=== PATIENT | female | born 1970 | race Caucasian/White ===

== ENCOUNTER 2016-10-04 10:28 | Emergency (ER) | payer BC, OTHER ==
[2016-10-04 10:34] VITALS: BMI 32.0
[2016-10-04] MEDS ORDERED: ASPIRIN 81 MG CHEWABLE TABLETS PO ONE (11:09)
[2016-10-04] MEDS ORDERED: KETOROLAC TROMETHAMINE 30 MG/1 ML VIAL IVPUSH ONE (11:09)
--- NOTE | 2016-10-04 11:26 | PDOC ---
History of Present Illness - General Chief Complaint: Pain, Acute Stated Complaint: Left arm pain, hearburn, back pain, sent by urgent Time Seen by Provider: 10/04/16 10:53 History Source: Patient Exam Limitations: No Limitations - History of Present Illness Initial Comments: 10/04/16 11:06 46-year-old female presents to the ED with complaints of initial epigastric pain with nausea and chills Monday night after going to a that resolved after taking Tums and Motrin. Patient states yesterday started to have left arm pain which she describes as a tingling now radiating to her left neck and then to her left chest wall this morning. Patient states went to an urgent care clinic who did a BGM since patient is recent diagnosis of prediabetic but was negative with no acute findings. Patient was sent to the ER for cardiac and pulmonary workup. Patient denies medical history recent travel, recent illness, cough, shortness of breath, palpitations, history of cervical disorders, or familial cardiac disease. Timing/Duration: 24 hours Severity: moderate Associated Symptoms: reports: chest pain Past History - Past Medical History Allergies/Adverse Reactions: Allergies Allergy/AdvReac Type Severity Reaction Status Date / Time No Known Allergies Allergy Unverified 10/04/16 10:34 Home Medications: Ambulatory Orders NK [No Known Home Medication] 10/04/16 Other medical history: denies - Reproductive History LMP Normal: Yes Is Patient Now?: No - Psycho/Social/Smoking Cessation Hx Suicidal Ideation: No Smoking History: Never smoked Information on smoking cessation initiated: No Hx Alcohol Use: No Drug/Substance Use Hx: No Substance Use Type: None Patient Lives Alone: No Review of Systems - Review of Systems Able to Perform ROS?: Yes Constitutional: Yes: Chills (3 days ago) HEENTM: No: Symptoms Reported Respiratory: No: Symptoms reported Cardiac (ROS): Yes: Chest Pain ABD/GI: No: Symptoms Reported : No: Symptoms Reported Musculoskeletal: Yes: Neck Pain Integumentary: No: Symptoms Reported Neurological: Yes: Tingling (left arm). No: Numbness, Weakness, Dizziness Psychiatric: No: Anxiety Endocrine: No: Symptoms Reported Hematologic/Lymphatic: No: Symptoms Reported *Physical Exam - Vital Signs Last Vital Signs Temp Pulse Resp BP Pulse Ox 98.1 F 68 18 111/70 99 10/04/16 10:32 10/04/16 10:32 10/04/16 10:32 10/04/16 10:32 10/04/16 10:32 - Physical Exam General Appearance: Yes: Nourished, Appropriately Dressed. No: Apparent Distress HEENT: positive: EOMI, DANIS. negative: Pale Conjunctivae Neck: positive: Supple. negative: Tender, Decreased range of motion Respiratory/Chest: positive: Chest Tender (left anterior chest (generalized)), Lungs Clear, Normal Breath Sounds. negative: Respiratory Distress, Accessory Muscle Use Cardiovascular: positive: Regular Rhythm, Regular Rate. negative: Murmur Gastrointestinal/Abdominal: positive: Soft. negative: Tenderness Musculoskeletal: negative: CVA Tenderness, Vertebral Tenderness Integumentary: positive: Normal Color, Warm, Moist Neurologic: positive: Normal Mood/Affect, Motor Strength 5/5 (left hand grasp, left shoulder shrug). negative: Numbness, Sensory Deficit Heart Score/ECG Review - History History: Slightly suspicious (rate 71. nsr) - Electrocardiogram EKG: Normal - Age Age: 45-65 - Risk Factors Risk Factors Heart Score: Yes Hx Diabetes (pre) Based on the list above the patient has:: 1-2 risk factors - Troponin Troponin: </= normal limit - Score Heart Score - Total: 2 - ECG Intrepretation Rhythm: Regular Rhythm ED Treatment Course - LABORATORY CBC & Chemistry Diagram: 10/04/16 12:50 10/04/16 12:12 - RADIOLOGY Radiology Studies Ordered: Category Date Time Status CHEST X-RAY PORTABLE* [RAD] Stat Radiology 10/04/16 11:09 Ordered Medical Decision Making - Medical Decision Making 10/04/16 11:51 Patient with left arm pain radiating to her neck and then now today to her left chest wall. Patient examined reproducible left-sided chest discomfort which she describes an aching sensation. Patient states a few days prior had nausea with retching without vomiting along with epigastric pain. Patient ordered for cardiac workup including a d-dimer. Patient also ordered for aspirin and Toradol 10/04/16 14:57 Laboratory Tests 10/04/16 10/04/16 10/04/16 12:12 12:13 12:13 WBC Hgb Hct Plt Count Neutrophils % INR 1.00 D-Dimer < 200 Sodium 140 Potassium 4.3 Chloride 101 Carbon Dioxide 28 Anion Gap 11 BUN 15 Creatinine 0.8 Random Glucose 93 Calcium 9.9 Total Bilirubin 0.4 ALT 27 Alkaline Phosphatase 72 Creatine Kinase 117 Troponin I < 0.02 Total Protein 7.4 Albumin 4.1 Serum , Qual Negative 10/04/16 12:50 WBC 5.9 Hgb 14.2 Hct 42.7 Plt Count 276 Neutrophils % 57.7 INR D-Dimer Sodium Potassium Chloride Carbon Dioxide Anion Gap BUN Creatinine Random Glucose Calcium Total Bilirubin ALT Alkaline Phosphatase Creatine Kinase Troponin I Total Protein Albumin Serum , Qual Chest x-ray negative. Patient will be discharged home to follow-up with her PCP *DC/Admit/Observation/Transfer Diagnosis at time of Disposition: Musculoskeletal pain of left upper extremity - Discharge Dispostion Disposition: HOME Condition at time of disposition: Good - Referrals Referrals: Rao Whittaker MD [Primary Care Provider] - - Patient Instructions Printed Discharge Instructions: DI for Musculoskeletal Pain Additional Instructions: Your d-dimer and cardiac workup were negative including a chest x-ray and other labs. I recommend you take Motrin 600 mg as needed for discomfort and follow-up with your PCP.
[2016-10-04] MEDS ORDERED: KETOROLAC TROMETHAMINE 30 MG/1 ML VIAL ONE (11:40)
[2016-10-04] MEDS ORDERED: ASPIRIN 81 MG CHEWABLE TABLETS ONE (11:40)
[2016-10-04 12:19] LABS: ALBUMIN 4.2 g/dl (3.4-5.0); ANION GAP 6 (8-16); BILIRUBIN,TOTAL 0.5 mg/dL (0.2-1.0); CALCIUM 10.1 mg/dL (8.5-10.1); CO2 27 mmol/L (21-32); COCKROFT - GAULT 123.1565; CREATININE 0.7 mg/dL (0.55-1.02); GLUCOSE,RANDOM 84 mg/dL (74-106); SGPT/ALT 27 U/L (12-78); TOT PROT 7.6 g/dl (6.4-8.2)
[2016-10-04 12:20] LABS: ALK PHOS 72 U/L (45-117)
[2016-10-04 12:21] LABS: SGOT/AST 37 U/L (15-37)
[2016-10-04 13:08] LABS: BASOPHIL 0.5 % (0-2.0); EOSINOPHIL 2.5 % (0-4.5); MCH 29.1 pg (25.7-33.7); MCHC 33.3 g/dl (32.0-36.0); MEAN CELL VOLUME 87.4 fl (80-96); MEAN PLT VOLUME 8.6 fl (7.5-11.1); NEUTROPHILS 57.7 % (42.8-82.8); PLATELET COUNT 276 K/MM3 (134-434); RDW 13.8 % (11.6-15.6); WHITE BLOOD COUNT 5.9 K/mm3 (4.0-10.0)
[2016-10-04 13:29] LABS: D-DIMER < 200 ng/ml (<200-235)
[2016-10-04 13:32] LABS: ALBUMIN 4.1 g/dl (3.4-5.0); ANION GAP 11 (8-16); BILIRUBIN,TOTAL 0.4 mg/dL (0.2-1.0); CALCIUM 9.9 mg/dL (8.5-10.1); CO2 28 mmol/L (21-32); CREATININE 0.8 mg/dL (0.55-1.02); GLUCOSE,RANDOM 93 mg/dL (74-106); SGOT/AST 19 U/L (15-37); SGPT/ALT 27 U/L (12-78); TOT PROT 7.4 g/dl (6.4-8.2)
[2016-10-04 13:35] LABS: ALK PHOS 72 U/L (45-117); TROPONIN I < 0.02 ng/ml (0.00-0.05)
[2016-10-04 15:25] VITALS: BP 102/73; PULSE 73; TEMP 98.4
--- NOTE | 2016-10-05 12:33 | EKG ---
Test Reason : Blood Pressure : / mmHG Vent. Rate : 071 BPM Atrial Rate : 071 BPM P-R Int : 170 ms QRS Dur : 080 ms QT Int : 402 ms P-R-T Axes : 063 054 063 degrees QTc Int : 436 ms NORMAL SINUS RHYTHM NORMAL ECG NO PREVIOUS ECGS AVAILABLE Confirmed by MALI BURKS, KISHAN ([id number]) on 10/05/2016 12:32:50 PM Referred By: Confirmed By:KSIHAN SAMSON MD
== END 2016-10-04 15:00 | disposition home or self-care (01) ==
LOC: JER 10:28
PROC: 3E0333Z Introduction of Anti-inflammatory into Peripheral Vein, Percutaneous Approach (ICD-10-PCS; principal; 2016-10-04)
DX: M79.602 Pain in left arm (principal)
CPT/HCPCS: 36415; 71010-TC; 80053; 82550; 84484; 84703; 85025; 85379; 85610; 93005; 93010; 99282-25

== ENCOUNTER 2017-09-24 20:40 | Emergency (ER) | payer BC ==
[2017-09-24] MEDS ORDERED: ERYTHROMYCIN 0.5% OPHTHALMIC OINTMENT 3.5 GM TUBE OD ONE (20:57)
--- NOTE | 2017-09-24 20:58 | PDOC ---
History of Present Illness - General Chief Complaint: Eye Problem Stated Complaint: TEAR DUCT DRAIN IS DISPLACED Time Seen by Provider: 09/24/17 20:57 History Source: Patient Exam Limitations: No Limitations - History of Present Illness Timing/Duration: momentarily Modifying Factors: worse with: cold therapy, eating, immobilization, medication , movement, rest, other Associated Symptoms: denies: denies symptoms, chest pain, cough, diaphoresis, fever/chills, headaches, loss of appetite, malaise, nausea/vomiting, rash, seizure, shortness of breath, syncope, weakness, other Aspirin Received prior to arrival: No: no aspirin today, unknown, 81 mg x 1, 81 mg x 2, 81 mg x 3, 81 mg x 4, 325 mg x 1, provided at home, provided by EMS, provided by ED Past History - Travel Traveled outside of the country in the last 30 days: No Close contact w/someone who was outside of country & ill: No - Past Medical History Allergies/Adverse Reactions: Allergies Allergy/AdvReac Type Severity Reaction Status Date / Time No Known Allergies Allergy Verified 09/24/17 20:50 Home Medications: Ambulatory Orders NK [No Known Home Medication] 10/04/16 Diabetes: Yes (pre) - Suicide/Smoking/Psychosocial Hx Smoking History: Never smoked Hx Alcohol Use: No Drug/Substance Use Hx: No Substance Use Type: None Review of Systems - Review of Systems Constitutional: No: Symptoms Reported, See HPI, Chills, Diaphoresis, Fever, Loss of Appetite, Malaise, Night Sweats, Weakness, Weight Stable, Unintentional Wgt. Loss, Unexplained wgt Loss, Other HEENTM: No: Symptoms Reported, See HPI, Eye Pain, Blurred Vision, Tearing, Recent change in vision, Double Vision, Cataracts, Ear Pain, Ocular Prothesis, Ear Discharge, Nose Pain, Nose Congestion, Tinnitus, Nose Bleeding, Hearing Loss , Throat Pain, Throat Swelling, Mouth Pain, Dental Problems, Difficulty Swallowing, Mouth Swelling, Other Respiratory: No: Symptoms reported, See HPI, Cough, Orthopnea, Shortness of Breath, SOB with Exertion, SOB at Rest, Stridor, Wheezing, Productive cough, Hemoptysis, Other Cardiac (ROS): No: Symptoms Reported, See HPI, Chest Pain, Edema, Irregular Heart Rate, Lightheadedness, Palpitations, Syncope, Chest Tightness, Other ABD/GI: No: Symptoms Reported, See HPI, Abdominal Distended, Abd. Pain w/ defecation, Blood Streaked Bowels, Constipated, Diarrhea, Difficulty Swallowing , Nausea, Poor Appetite, Poor Fluid Intake, Rectal Bleeding, Vomiting, Indigestion, Abdominal cramping, Tarry Stools, Other Musculoskeletal: No: Symptoms Reported, See HPI, Back Pain, Gout, Joint Pain, Joint Swelling, Muscle Pain, Muscle Weakness, Neck Pain, Joint Stiffness, Other Integumentary: No: Symptoms Reported, See HPI, Bruising, Change in Color, Change in Hair/Nails, Dryness, Erythema, Flushing, Lesions, Lumps, Pallor, Pruritus, Rash, Sweating, Other *Physical Exam - Physical Exam General Appearance: Yes: Nourished, Appropriately Dressed, Apparent Distress, Mild Distress HEENT: positive: EOMI, DANIS, Normal ENT Inspection, Normal Voice, Symmetrical, TMs Normal, Pharynx Normal (pt's tear duct drain is displaced and coming onto her iris area) Neck: positive: Trachea midline, Normal Thyroid, Supple Respiratory/Chest: positive: Lungs Clear, Normal Breath Sounds Cardiovascular: positive: Regular Rhythm, Regular Rate Gastrointestinal/Abdominal: positive: Normal Bowel Sounds, Flat, Soft Musculoskeletal: positive: Normal Inspection Extremity: positive: Normal Inspection, Normal Range of Motion Integumentary: positive: Normal Color, Dry, Warm Neurologic: positive: Fully Oriented, Alert, Normal Mood/Affect Medical Decision Making - Medical Decision Making 09/25/17 01:43 Pt's tear duct tube on the right came out partially. I sterilly managed to nudge the tube back into place. Pt was treated with tetracaine drops. With a sterile mets and sterile gloves and gauze, I pushed the tube back into place. I spoke to her director of investigations Dr. Bay, he agrees with my management and recommends erythromycin ointment and artificial tears for lubrication of the tube against the sclera. He can see the patient tomorrow 9am in his office, if needed.Pt is feeling better. *DC/Admit/Observation/Transfer Diagnosis at time of Disposition: Disorder of tear duct system - Discharge Dispostion Disposition: HOME Condition at time of disposition: Improved Decision to Admit order: No - Referrals Referrals: Bakari Lopez MD [Primary Care Provider] - Tu Carroll MD [Staff Physician] - - Patient Instructions Printed Discharge Instructions: DI for Lacrimal Duct Stenosis Additional Instructions: Follow with Dr. Carroll in the office at 9AM as needed. Apply Erythromycin ophthalmic ointment as directed. Apply artificial tears as directed. - Post Discharge Activity
[2017-09-24 21:01] VITALS: BP 104/66; PULSE 79; TEMP 98.9; BMI 31.8
[2017-09-24] MEDS ORDERED: ERYTHROMYCIN 0.5% OPHTHALMIC OINTMENT 3.5 GM TUBE ONE (21:01)
[2017-09-24] MEDS ORDERED: ARTIFICIAL TEARS (POLYVINYL ALCOHOL 1.4%) OPTH DROPS OD ONE (21:08)
[2017-09-25] MEDS ORDERED: ARTIFICIAL TEARS (POLYVINYL ALCOHOL 1.4%) OPTH DROPS OU ONE (01:47)
== END 2017-09-24 21:24 | disposition home or self-care (01) ==
LOC: FER 20:40
DX: H04.9 Disorder of lacrimal system, unspecified (principal); R73.03 Prediabetes
CPT/HCPCS: 99281-25

== ENCOUNTER 2018-05-08 12:43 | Emergency (ER) | payer BC ==
[2018-05-08 12:58] VITALS: BP 99/62; PULSE 77; TEMP 98.6; BMI 29.2
--- NOTE | 2018-05-08 13:09 | PDOC ---
History of Present Illness - General Chief Complaint: Pain Stated Complaint: UPPER BACK PAIN AND HEART BURN Time Seen by Provider: 05/08/18 12:50 History Source: Patient, Family Exam Limitations: No Limitations - History of Present Illness Initial Comments: 05/08/18 13:05 CHIEF COMPLAINT: Posterior thorax pain for 3 or so days. 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 The pain feels like a pressure. The pain is unrelated to exertion or breathing. The discomfort made it difficult to sleep all night last night. The patient has been taking Tums at night for the last couple of nights, thinking that this might be heartburn. There is no chest pain, no radiation, no shortness of breath. There is no diaphoresis or dyspnea. There is no nausea or vomiting. There is no fever or cough. Cardiac risks: Negative hypertension Negative diabetes Borderline hyperlipidemia Positive family history Positive former smoker REVIEW OF SYSTEMS: GENERAL/CONSTITUTIONAL: No fever or chills. No weakness. No weight change. HEAD, EYES, EARS, NOSE AND THROAT: No change in vision. No ear pain or discharge. No sore throat. CARDIOVASCULAR: No anterior chest pain or shortness of breath. RESPIRATORY: No cough, wheezing, or hemoptysis. GASTROINTESTINAL: No nausea, vomiting, diarrhea or constipation. No rectal bleeding. GENITOURINARY: No dysuria, frequency, or change in urination. MUSCULOSKELETAL: Positive foot pain secondary to ongoing plantar fasciitis. SKIN AND BREASTS: No rash or easy bruising. NEUROLOGIC: No headache, vertigo, loss of consciousness, or loss of sensation. PSYCHIATRIC: No depression or anxiety. ENDOCRINE: No increased thirst. No abnormal weight change. HEMATOLOGIC/LYMPHATIC: No anemia, easy bleeding, or history of blood clots. ALLERGIC/IMMUNOLOGIC: No hives or skin allergy. No latex allergy. Past History - Past Medical History Allergies/Adverse Reactions: Allergies Allergy/AdvReac Type Severity Reaction Status Date / Time No Known Allergies Allergy Verified 05/08/18 12:47 Home Medications: Ambulatory Orders Omeprazole 40 mg PO DAILY #30 tablet. 05/08/18 COPD: No Diabetes: Yes (prediabetic) HTN: No Hypercholesterolemia: Yes (borderline on diet control) - Family Disease History Family Disease History: Heart Disease: Father, Brother (MIs in their 40s) - Suicide/Smoking/Psychosocial Hx Smoking History: Never smoked Information on smoking cessation initiated: No Hx Alcohol Use: Yes (RARE SOCIAL) Drug/Substance Use Hx: No Substance Use Type: None *Physical Exam - Vital Signs Last Vital Signs Temp Pulse Resp BP Pulse Ox 98.6 F 77 16 99/62 97 05/08/18 12:47 05/08/18 12:47 05/08/18 12:47 05/08/18 12:47 05/08/18 12:47 - Physical Exam Comments: 05/08/18 13:09 GENERAL: The patient is awake, alert, and fully oriented, in no acute distress. She is comfortable lying on the stretcher. Her mother is with her at bedside. HEAD: Normal with no signs of trauma. EYES: Pupils equal, round and reactive to light, extraocular movements intact, sclera anicteric, conjunctiva clear. ENT: Ears normal, nares patent, oropharynx clear without exudates. Moist mucous membranes. NECK: Normal range of motion, supple without lymphadenopathy, JVD, or masses. LUNGS: Breath sounds equal, clear to auscultation bilaterally. No wheezes, and no crackles. HEART: Regular rate and rhythm, normal S1 and S2 without murmur, rub or gallop. ABDOMEN: Soft, nontender, normoactive bowel sounds. No guarding, no rebound. No masses. EXTREMITIES: Normal range of motion, no edema. No clubbing or cyanosis. No cords, erythema, or tenderness. NEUROLOGICAL: Cranial nerves II through XII grossly intact. Normal speech, normal gait. PSYCH: Normal mood, normal affect. SKIN: Warm, Dry, normal turgor, no rashes or lesions noted. Moderate Sedation - Procedure Monitoring Vital Signs: Procedure Monitoring Vital Signs Temperature 98.6 F 05/08/18 12:47 Pulse Rate 77 05/08/18 12:47 Respiratory Rate 16 05/08/18 12:47 Blood Pressure 99/62 05/08/18 12:47 O2 Sat by Pulse Oximetry (%) 97 05/08/18 12:47 Heart Score/ECG Review - History History: Slightly suspicious - Electrocardiogram EKG: Normal - Age Age: 45-65 - Risk Factors Risk Factors Heart Score: Yes Hx Hypercholesterolemia, Yes Smoking History, Yes Positive family hx of cardiac disease Based on the list above the patient has:: >/=3 risk factors or Hx atherosclerotic disease - Troponin Troponin: </= normal limit - Score Heart Score - Total: 3 (low risk category, OP f/u) ED Treatment Course - LABORATORY CBC & Chemistry Diagram: 05/08/18 13:16 05/08/18 13:55 - RADIOLOGY Radiology Studies Ordered: Category Date Time Status CHEST PA & LAT [RAD] Stat Radiology 05/08/18 13:04 Ordered Medical Decision Making - Medical Decision Making 05/08/18 15:06 Patient is a 47-year-old female with borderline hyperlipidemia, former smoker, quit 13 years ago, strong family history of heart disease with 2 brothers who had coronary disease in their 40s. Patient presents with upper thoracic pain posteriorly which has been present for approximately 3 days. She thought it might be reflux, and it hasn't gone away so she decided to come to the ED today. The pain has been constant, somewhat worse at night each night, but always present. There is no shortness of breath or anterior chest pain. There is no nausea or vomiting. Physical examination is normal Twelve-lead EKG shows normal sinus rhythm at [address] or T-wave changes, normal. Chest x-ray PA and lateral is normal. Laboratory studies are notable for normal troponin despite ongoing pain for 3 days. Impression: Atypical thoracic pain, likely not coronary disease. Possibilities include GERD or other. Plan: Patient will follow up closely with reception clerk. Her heart score puts her in the low risk category and her ED workup is negative. She states she will follow-up as instructed within 48 hours with cardiology. Laboratory Results - last 24 hr 05/08/18 05/08/18 05/08/18 13:16 13:16 13:16 WBC 5.4 RBC 4.51 Hgb 13.2 Hct 40.1 MCV 88.8 MCH 29.3 MCHC 33.0 RDW 12.5 Plt Count 263 MPV 8.8 Absolute Neuts (auto) 3.6 Neutrophils % 66.5 Lymphocytes % 23.5 Monocytes % 6.3 Eosinophils % 3.2 Basophils % 0.5 Sodium Cancelled Potassium Cancelled Chloride Cancelled Carbon Dioxide Cancelled Anion Gap Cancelled BUN Cancelled Creatinine Cancelled Creat Clearance w eGFR Cancelled Random Glucose Cancelled Calcium Cancelled Total Bilirubin Cancelled AST Cancelled ALT Cancelled Alkaline Phosphatase Cancelled Troponin I Cancelled Total Protein Cancelled Albumin Cancelled 05/08/18 05/08/18 13:55 13:55 WBC RBC Hgb Hct MCV MCH MCHC RDW Plt Count MPV Absolute Neuts (auto) Neutrophils % Lymphocytes % Monocytes % Eosinophils % Basophils % Sodium 137 Potassium 4.1 Chloride 105 Carbon Dioxide 26 Anion Gap 6 L BUN 24 H Creatinine 0.7 Creat Clearance w eGFR > 60 Random Glucose 92 Calcium 8.9 Total Bilirubin 0.3 AST 22 ALT 23 Alkaline Phosphatase 55 Troponin I < 0.03 Total Protein 6.2 L Albumin 3.8 *DC/Admit/Observation/Transfer Diagnosis at time of Disposition: Thoracic back pain Qualifiers: Chronicity: acute Back pain laterality: bilateral Qualified Code(s): M54.6 - Pain in thoracic spine - Discharge Dispostion Disposition: HOME Condition at time of disposition: Stable Decision to Admit order: No - Prescriptions Prescriptions: Omeprazole 40 mg PO DAILY #30 tablet.dr - Referrals Referrals: Al Lowe MD [Staff Physician] - Call tomorrow - Patient Instructions Printed Discharge Instructions: DI for Atypical Chest Pain, DI for Gastroesophageal Reflux Disease (GERD) Additional Instructions: Today you were evaluated for pain in the upper back. The evaluation did not find any abnormalities. The chest x-ray, EKG, and blood tests including heart enzymes were all normal. The cause of the symptoms is not clear at this time. You may take Prilosec 40 mg daily to see if this improves his symptoms. You should see the reception clerk this week for further evaluation given the strong family history of heart disease, and despite the negative tests in the emergency department. Further testing is clearly indicated. Follow-up with Dr. Al Lowe by phone tomorrow to schedule a cardiology follow-up. Return to the emergency department for any severe or progressive symptoms. - Post Discharge Activity
[2018-05-08 13:34] LABS: BASO % 0.5 % (0-2.0); EOS % 3.2 % (0-4.5); HEMATOCRIT 40.1 % (32.4-45.2); HEMOGLOBIN 13.2 GM/dl (10.7-15.3); LYMPH % 23.5 % (8-40); MCH 29.3 pg (25.7-33.7); MEAN CELL VOLUME 88.8 fl (80-96); MEAN PLT VOLUME 8.8 fl (7.5-11.1); MONO % 6.3 % (3.8-10.2); NEUT % 66.5 % (42.8-82.8); PLATELET COUNT 263 K/MM3 (134-434); RBC 4.51 M/mm3 (3.60-5.2); RDW 12.5 % (11.6-15.6); WHITE BLOOD COUNT 5.4 K/mm3 (4.0-10.8)
[2018-05-08 14:17] LABS: ALBUMIN 3.8 g/dl (3.5-5.0); ALK PHOS 55 U/L (32-92); ANION GAP 6 MMOL/L (8-16); BILIRUBIN,TOTAL 0.3 mg/dl (0.2-1.0); BLOOD UREA NITROGEN 24 mg/dl (7-18); CALCIUM 8.9 mg/dl (8.4-10.2); CHLORIDE 105 mmol/L (98-107); CO2 26 mmol/L (22-28); CREATININE 0.7 mg/dl (0.6-1.3); GLUCOSE,RANDOM 92 mg/dl (74-106); POTASSIUM 4.1 mmol/L (3.5-5.1); SGOT/AST 22 U/L (10-42); SGPT/ALT 23 U/L (10-40); SODIUM 137 mmol/L (136-145); TOT PROT 6.2 g/dl (6.4-8.3)
--- NOTE | 2018-05-09 19:00 | EKG ---
Test Reason : Blood Pressure : / mmHG Vent. Rate : 076 BPM Atrial Rate : 076 BPM P-R Int : 152 ms QRS Dur : 080 ms QT Int : 378 ms P-R-T Axes : 065 062 054 degrees QTc Int : 425 ms NORMAL SINUS RHYTHM NORMAL ECG WHEN COMPARED WITH ECG OF 04-OCT-2016 13:19, NO SIGNIFICANT CHANGE WAS FOUND Confirmed by ELBA VALDIVIA MD ([id number]) on 05/09/2018 6:59:48 PM Referred By: LAWANDA CHATMAN Confirmed By:ELBA VALDIVIA MD
== END 2018-05-08 15:21 | disposition home or self-care (01) ==
LOC: FER 12:43
DX: M54.6 Pain in thoracic spine (principal); E78.00 Pure hypercholesterolemia, unspecified; Z87.891 Personal history of nicotine dependence; R73.03 Prediabetes
CPT/HCPCS: 36415; 71046-TC-FY; 80053; 84484; 85025; 93005; 99284-25

== ENCOUNTER 2018-06-12 21:35 | Emergency (ER) | payer BC ==
--- NOTE | 2018-06-12 21:43 | PDOC ---
History of Present Illness - General Chief Complaint: Chest Pain Stated Complaint: CHEST PAIN Time Seen by Provider: 06/12/18 21:40 - History of Present Illness Initial Comments: This 47-year-old woman with a history of hyperlipidemia presents with several hour history of left-sided chest pain. Patient states that symptoms began at approximately 3 PM after she received a massage. She states that she first felt right calf pain as she was seated, eating lunch. Pain was sharp and lasted approximately a half hour. She states then states the pain resolved spontaneously but she then began to feel left-sided chest pressure. No associated shortness of breath, cough, nausea or diaphoresis. She took aspirin 325 milligrams when she returned home but no other medications. Left-sided chest discomfort persisted and she came to the emergency room. Patient was seen approximately one month ago with upper back/upper chest pain. She was seen by dealer accounts investigator after this who, according the patient, did not think the pain was secondary to cardiac disease but CT scheduled in early July. Cardiac risk factors: HLD/strong family history of early heart disease; no DM/ smoking/HTN Thromboembolic risk factors: No recent prolonged inactivity/estrogen supplementation/smoking/obesity/family history of thromboembolic disorders Past History - Past Medical History Allergies/Adverse Reactions: Allergies Allergy/AdvReac Type Severity Reaction Status Date / Time No Known Allergies Allergy Verified 06/12/18 21:36 Home Medications: Ambulatory Orders NK [No Known Home Medication] 06/12/18 COPD: No Diabetes: Yes (prediabetic) HTN: No Hypercholesterolemia: Yes - Family Disease History Family Disease History: Heart Disease: Father, Brother (MIs in their 40s) - Suicide/Smoking/Psychosocial Hx Smoking History: Never smoked Hx Alcohol Use: Yes (RARE SOCIAL) Drug/Substance Use Hx: No Substance Use Type: None Review of Systems - Review of Systems Able to Perform ROS?: Yes Comments:: 12 point review of systems is negative except for what is noted in the history of present illness *Physical Exam - Vital Signs Last Vital Signs Temp Pulse Resp BP Pulse Ox 98.3 F 80 16 126/88 100 06/12/18 21:42 06/12/18 21:42 06/12/18 21:42 06/12/18 21:42 06/12/18 21:42 - Physical Exam Comments: GENERAL: Adult female, alert and oriented 3, in no acute distress HEAD: Normal with no signs of trauma. EYES: PERRLA, EOMI, sclera anicteric, conjunctiva clear. ENT: Ears normal, nares patent, oropharynx clear without exudates. Dry mucous membranes. NECK: Normal range of motion, supple without lymphadenopathy, JVD, or masses. LUNGS: Breath sounds equal, clear to auscultation bilaterally. No wheezes, and no crackles. HEART:Regular rate and rhythm, normal S1 and S2 without murmur, rub or gallop. ABDOMEN:.normal bowel sounds No guarding,tenderness or rebound.No masses No distention. EXTREMITIES: Normal range of motion, no edema. No clubbing or cyanosis. No erythema, or tenderness. NEUROLOGICAL: Cranial nerves II through XII grossly intact. Normal speech. No focal neurological deficits. MUSCULOSKELETAL: Back non-tender to palpation, no CVA tenderness SKIN: Warm, Dry, normal turgor, no rashes or lesions noted. Twelve-lead electrocardiogram is performed and interpreted by me: Normal sinus rhythm at 82 bpm; intervals, axis and wave forms are all normal. No evidence of acute ST or T-wave abnormalities, no Q waves seen. No evidence of acute cardiac arrhythmia. Tracing is unchanged from one performed on 05/08/18 Heart Score/ECG Review - History History: Slightly suspicious - Electrocardiogram EKG: Normal - Age Age: 45-65 - Risk Factors Risk Factors Heart Score: Yes Hx Hypercholesterolemia, Yes Positive family hx of cardiac disease Based on the list above the patient has:: 1-2 risk factors - Troponin Troponin: </= normal limit - Score Heart Score - Total: 2 Moderate Sedation - Procedure Monitoring Vital Signs: Procedure Monitoring Vital Signs Temperature 98.3 F 06/12/18 21:42 Pulse Rate 80 06/12/18 21:42 Respiratory Rate 16 06/12/18 21:42 Blood Pressure 126/88 06/12/18 21:42 O2 Sat by Pulse Oximetry (%) 100 06/12/18 21:42 ED Treatment Course - LABORATORY CBC & Chemistry Diagram: 06/12/18 22:00 06/12/18 22:00 - ADDITIONAL ORDERS Additional order review: Laboratory Results 06/12/18 06/12/18 06/12/18 22:45 22:00 22:00 Sodium 139 Potassium 3.7 Chloride 102 Carbon Dioxide 26 Anion Gap 11 BUN 23 H Creatinine 0.7 Creat Clearance w eGFR > 60 Random Glucose 92 Calcium 9.5 Total Bilirubin 0.4 AST 20 ALT 18 Alkaline Phosphatase 65 Creatine Kinase 115 Troponin I < 0.03 Total Protein 6.6 Albumin 4.1 Urine HCG, Qual Negative 06/12/18 22:00 RBC 4.69 MCV 88.8 MCHC 33.0 RDW 12.9 MPV 9.5 Neutrophils % 50.7 Lymphocytes % 38.0 Monocytes % 6.6 Eosinophils % 3.6 Basophils % 1.1 - RADIOLOGY Radiology Studies Ordered: Category Date Time Status CHEST CTA [CT] Stat CT Scan 06/12/18 22:59 Completed - Medications Given in the ED: ED Medications Discontinued Medications Generic Name Dose Route Start Last Admin Trade Name Freq PRN Reason Stop Dose Admin Sodium Chloride 1,000 mls @ 1,000 mls/hr 06/12/18 23:32 06/12/18 23:34 Normal Saline - IV 06/13/18 00:31 1,000 mls/hr ASDIR STA Administration Ketorolac Tromethamine 30 mg 06/12/18 23:57 06/13/18 00:02 Toradol Injection - IVPUSH 06/12/18 23:58 30 mg ONCE ONE Administration Medical Decision Making - Medical Decision Making CBC/history/cardiac enzymes evaluated in this patient with several hour history of left-sided chest pressure and risk factors for coronary artery disease. All laboratory evaluation including troponin normal (except for BUN slightly elevated at 23) Since patient had some persistent left chest discomfort but described unusual history of leg pain, spontaneously resolving, followed by left-sided chest pain , CT angiogram performed to fully rule out pulmonary embolus. CT angiogram of the chest negative for evidence of pulmonary embolus or other acute abnormalities. There is a small amount of right-sided basilar parenchymal scarring but no other abnormality. Patient given a liter of normal saline because of elevation of BUN as compared to creatinine which was normal. Toradol 30 mg IV administered. Patient had some relief in her pain after Toradol IV and 1 L normal saline. Patient will be discharged with instructions to continue to plenty of fluids and to use ibuprofen/proximal and/acetaminophen as needed for chest discomfort. She should follow-up with her own doctor within the next 48 hours. She should return to the emergency room immediately if she has persistent severe chest pain or experiences shortness of breath/severe cough/palpitations *DC/Admit/Observation/Transfer Diagnosis at time of Disposition: Atypical chest pain - Discharge Dispostion Disposition: HOME Condition at time of disposition: Stable - Referrals - Patient Instructions Printed Discharge Instructions: DI for Atypical Chest Pain Additional Instructions: rest; avoid strenuous activity for the next 2-3 days Ibuprofen/Naproxen/Acetaminophen as needed for pain followup with your doctor within 2 days return to ER if you have severe, persistent pain/shortness of breath/ palpitations - Post Discharge Activity
[2018-06-12 21:45] VITALS: BP 126/88; PULSE 80; TEMP 98.3; BMI 30.2
[2018-06-12 22:11] LABS: BASO % 1.1 % (0-2.0); EOS % 3.6 % (0-4.5); HEMATOCRIT 41.7 % (32.4-45.2); HEMOGLOBIN 13.8 GM/dl (10.7-15.3); MCH 29.3 pg (25.7-33.7); MEAN CELL VOLUME 88.8 fl (80-96); MEAN PLT VOLUME 9.5 fl (7.5-11.1); MONO % 6.6 % (3.8-10.2); NEUT % 50.7 % (42.8-82.8); PLATELET COUNT 260 K/MM3 (134-434); RBC 4.69 M/mm3 (3.60-5.2); RDW 12.9 % (11.6-15.6); WHITE BLOOD COUNT 6.3 K/mm3 (4.0-10.8)
[2018-06-12 22:23] LABS: ALBUMIN 4.1 g/dl (3.4-5.0); ALK PHOS 65 U/L (45-117); ANION GAP 11 MMOL/L (8-16); BILIRUBIN,TOTAL 0.4 mg/dl (0.2-1); BLOOD UREA NITROGEN 23 mg/dl (7-18); CALCIUM 9.5 mg/dl (8.5-10); CHLORIDE 102 mmol/L (98-107); CO2 26 mmol/L (21-32); CREATININE 0.7 mg/dl (0.55-1.3); GLUCOSE,RANDOM 92 mg/dl (74-106); POTASSIUM 3.7 mmol/L (3.5-5.1); SGOT/AST 20 U/L (15-37); SGPT/ALT 18 U/L (13-61); SODIUM 139 mmol/L (136-145); TOT PROT 6.6 g/dl (6.4-8.2)
[2018-06-12] MEDS ORDERED: SODIUM CHLORIDE 1,000 ML IV STA (23:32)
[2018-06-12] MEDS ORDERED: KETOROLAC TROMETHAMINE 30 MG/1 ML VIAL ONE (23:56)
[2018-06-12] MEDS ORDERED: KETOROLAC TROMETHAMINE 30 MG/1 ML VIAL IVPUSH ONE (23:57)
--- NOTE | 2018-06-13 11:36 | EKG ---
Test Reason : Blood Pressure : / mmHG Vent. Rate : 064 BPM Atrial Rate : 064 BPM P-R Int : 168 ms QRS Dur : 082 ms QT Int : 396 ms P-R-T Axes : 069 065 068 degrees QTc Int : 408 ms NORMAL SINUS RHYTHM NORMAL ECG WHEN COMPARED WITH ECG OF 08-MAY-2018 13:33, NO SIGNIFICANT CHANGE WAS FOUND Confirmed by KISHAN SAMSON MD ([id number]) on 06/13/2018 11:36:23 AM Referred By: DR FAROOQ Confirmed By:KISHAN SAMSON MD
== END 2018-06-13 00:11 | disposition home or self-care (01) ==
LOC: FER 21:35
PROC: 3E0333Z Introduction of Anti-inflammatory into Peripheral Vein, Percutaneous Approach (ICD-10-PCS; principal; 2018-06-12)
PROC: 3E0337Z Introduction of Electrolytic and Water Balance Substance into Peripheral Vein, Percutaneous Approach (ICD-10-PCS; 2018-06-12)
DX: R07.89 Other chest pain (principal); R73.03 Prediabetes; E78.5 Hyperlipidemia, unspecified
CPT/HCPCS: 36415; 71275-TC; 80053; 82550; 84484; 84703; 85025; 93005; 99281-25; J7030

== ENCOUNTER 2019-03-23 03:54 | Emergency (ER) | payer BC ==
--- NOTE | 2019-03-23 03:56 | PDOC ---
History of Present Illness - General Chief Complaint: Hives Stated Complaint: HIVES Time Seen by Provider: 03/23/19 03:55 - History of Present Illness Initial Comments: This 48-year-old woman with a history of HLD/prediabetes presents with few hour history of urticaria: Patient states that she awakened to go to the bathroom a few hours prior to presentation noted that she had pruritic rash on her arms and back. She denies shortness of breath/difficulty swallowing or lip/tongue swelling. Recent medical history notable for productive cough and sore throat for approximately 1 week. Patient self medicated with amoxicillin and Augmentin that she had at home prescribed for other infections for a few days ( amoxicillin was ). When she did not feel better, she saw her PMD (Dr. Roa) on Monday, 03/20. Augmentin was prescribed and patient has been taking this since then. She denies any other new medications/supplements/ vitamins or any new topical agent. She states she has taken amoxicillin/ penicillin/clavulanate previously without allergic reaction. She has no other known drug allergies. She denies any exposure to new foods. Patient did not take any medication for her rash prior to presentation Patient does not take any other daily medications Non-smoker; no daily alcohol consumption; no other recreational drug use Past History - Past Medical History Allergies/Adverse Reactions: Allergies Allergy/AdvReac Type Severity Reaction Status Date / Time No Known Allergies Allergy Verified 06/12/18 21:36 Home Medications: Ambulatory Orders Amoxicillin/Potassium Clav [Amox-Clav 875-125 mg Tablet] 1 tab PO BID 03/23/19 Azithromycin [Zithromax 250mg Tablets -] 250 mg PO UTDICT #6 tab 03/23/19 COPD: No Diabetes: Yes (prediabetic) HTN: No Hypercholesterolemia: Yes - Psycho Social/Smoking Cessation Hx Smoking History: Never smoked Have you smoked in the past 12 months: No Hx Alcohol Use: Yes (RARE SOCIAL) Drug/Substance Use Hx: No Substance Use Type: None Review of Systems - Review of Systems Able to Perform ROS?: Yes Comments:: 12 point review of systems is negative except for what is noted in the history of present illness *Physical Exam - Physical Exam Comments: GENERAL: Adult female, alert and oriented x3, no acute respiratory distress HEAD: Normal with no signs of trauma. EYES: PERRLA, EOMI, sclera anicteric, conjunctiva clear. ENT: Ears normal, nares patent, oropharynx clear without exudates. Moist mucous membranes. No lip/tongue/uvular edema NECK: Normal range of motion, supple without lymphadenopathy, JVD, or masses. No stridor LUNGS: Breath sounds equal, clear to auscultation bilaterally. No wheezes HEART:Regular rate and rhythm, normal S1 and S2 without murmur, rub or gallop. ABDOMEN:.normal bowel sounds No guarding,tenderness or rebound.No masses No distention. EXTREMITIES: Normal range of motion, no edema. No clubbing or cyanosis. No erythema, or tenderness. NEUROLOGICAL: Cranial nerves II through XII grossly intact. Normal speech. No focal neurological deficits. MUSCULOSKELETAL: Back non-tender to palpation, no CVA tenderness SKIN: Scattered erythematous maculopapular rash bilateral upper extremities and back; rare papules seen on abdomen and lower extremities; no other rash seen Medical Decision Making - Medical Decision Making 03/23/19 04:41 This 48-year-old woman presents with urticarial rash without evidence of facial edema/lip edema or upper airway compromise. She has been taking amoxicillin and amoxicillin/clavulanate for several days (48 hours of new prescription by PMD) for bronchitis. She denies any other new exposure to medication or food. No previous allergic reaction to penicillin or other medications. (Patient states she has family members with penicillin allergy). Exam as noted with scattered erythematous maculopapular rash consistent with urticaria. No upper airway edema noted. Lungs were clear Clinical presentation consistent with urticaria of unclear etiology but likely related to amoxicillin/clavulanate allergy. There is explained to the patient that, although she has previously tolerated amoxicillin, cross-reactivity may have resulted in allergic reaction. She should avoid amoxicillin/clavulanate or amoxicillin alone until she discusses issue with Dr. Roa and possibly has allergic testing. The patient requested another antibiotic to replace the Augmentin; even though it was suggested that she might not actually need an alternative antibiotic at this point, she felt strongly that she would become "sicker" if she did not take an antibiotic. She has tolerated azithromycin/Z- Yusuf in the past and prescription for 5 day course was sent to her pharmacy, to be started later on today. Patient drove herself to the ER; she will not be given Benadryl here but she does have this medication at home and will take 25- 50 mg every 6-8 hours as needed for itching when she arrives home. When she needs to be alert, she can take Claritin (which she also has at home). She should return to the emergency room immediately if she has any lip/tongue swelling or has any difficulty swallowing/breathing. Discharge - Discharge Information Problems reviewed: Yes Clinical Impression/Diagnosis: Urticaria Condition: Stable Disposition: HOME - Additional Discharge Information Prescriptions: Azithromycin [Zithromax 250mg Tablets -] 250 mg PO UTDICT #6 tab - Follow up/Referral Referrals: Debbie Roa MD [Primary Care Provider] - - Patient Discharge Instructions Patient Printed Discharge Instructions: Kelly Additional Instructions: Stop Augmentin Benadryl or Claritin as needed for itching (Benadryl at night/Claritin during the day) Can also use calamine lotion on rash; oatmeal baths as needed for itching Return to ER immediately if you have any lip/tongue swelling or difficulty swallowing/breathing Azithromycin Z-Yusuf: Begin later today and taper as directed Follow-up with Dr. Roa within the next 48 hours - Post Discharge Activity
[2019-03-23 04:06] VITALS: BP 120/61; PULSE 81; TEMP 98.2; BMI 30.1
== END 2019-03-23 04:33 | disposition home or self-care (01) ==
LOC: SUPCPDRO 03:54 → FER 03:54
DX: L50.8 Other urticaria (principal); E78.5 Hyperlipidemia, unspecified; E78.00 Pure hypercholesterolemia, unspecified; R73.03 Prediabetes
CPT/HCPCS: 99281-25

== ENCOUNTER 2019-03-24 02:36 | Emergency (ER) | payer BC ==
[2019-03-24] MEDS ORDERED: predniSONE 20 MG TABLET (UD) PO ONE (02:43)
[2019-03-24 02:44] VITALS: BP 107/84; PULSE 78; TEMP 98.2; BMI 30.1
[2019-03-24] MEDS ORDERED: predniSONE 20 MG TABLET (UD) ONE (02:45)
--- NOTE | 2019-03-24 02:48 | PDOC ---
History of Present Illness - General Chief Complaint: Rash Stated Complaint: RASH Time Seen by Provider: 03/24/19 02:37 History Source: Patient Exam Limitations: No Limitations - History of Present Illness Initial Comments: 03/24/19 02:44 This is a 48-year-old female who was seen yesterday for a rash. Patient was told to take Benadryl however she did not take the Benadryl but did take some Claritin that was old. Rash now is worse. Patient denies any cough congestion shortness of breath abdominal pain nausea vomiting or diarrhea. Patient did take some Benadryl approximately 4 hours prior to coming in without improvement of the symptoms. Patient initially thought that the rash was secondary to azithromycin that she was on however she also took a nasal spray and said that the rash came up shortly after taking the nasal spray so thinks it may be the nasal spray as well. Patient however stop the nasal spray and the antibiotic. Allergies: as per nursing notes Past Medical History: none Social history: Lives with family. No smoking. No alcohol. No illicit drugs. Surgical history: None General: No fevers or chills, no weakness, no weight loss HEENT: No change in vision. No sore throat,. No ear pain CardioVascular: no chest discomfort. No shortness of breath Respiratory:No cough, or wheezing. Gastrointestinal: no nausea, vomiting, diarrhea or constipation, No rectal bleeding Genitourinary: No dysuria, hematuria, or frequency Musculoskeletal: No joint or muscle pain or swelling Neurologic: No headache, vertigo, dizziness or loss of consciousness Psychiatric: nor depression Skin: Itchy rash as per HPI Endocrine: no increased thirst or abnormal weight change Allergic: no skin or latex allergy All other systems reviewed and normal GENERAL: The patient is awake, alert, and fully oriented, in no acute distress. HEAD: Normal with no signs of trauma. EYES: Pupils equal, round and reactive to light, extraocular movements intact, sclera anicteric, conjunctiva clear. EXTREMITIES:atraumatic, Normal range of motion, no edema. NEUROLOGICAL: Normal speech, normal gait. PSYCH: Normal mood, normal affect. SKIN: Warm, Dry, normal turgor, there are hives on patient's arms face neck back and extremities or lesions noted. Assessment and plan: This is a 48-year-old female with hives secondary to a medication it is unclear as to whether its azithromycin or a nasal spray she took. Patient was told to stop both which she has and I will start her on a short steroid taper in the form of Medrol Dosepak. Patient given 40 mg of prednisone here in the ED. Patient instructed to follow-up with her primary care doctor or an back closer for testing if she continues to have allergic reactions and hives Past History - Past Medical History Allergies/Adverse Reactions: Allergies Allergy/AdvReac Type Severity Reaction Status Date / Time No Known Allergies Allergy Verified 06/12/18 21:36 Home Medications: Ambulatory Orders Azithromycin [Zithromax 250mg Tablets -] 250 mg PO UTDICT #6 tab 03/23/19 Methylprednisolone [Medrol Dose Yusuf] 4 mg PO ASDIR #21 tablet 03/24/19 COPD: No Diabetes: Yes (prediabetic) HTN: No Hypercholesterolemia: Yes - Psycho Social/Smoking Cessation Hx Smoking History: Never smoked Have you smoked in the past 12 months: No Hx Alcohol Use: Yes (RARE SOCIAL) Drug/Substance Use Hx: No Substance Use Type: None Discharge - Discharge Information Problems reviewed: Yes Clinical Impression/Diagnosis: Urticaria Condition: Stable Disposition: HOME - Admission No - Follow up/Referral - Patient Discharge Instructions Additional Instructions: Take the Medrol Dosepak and taper as per the PACS instructions. Stop taking the nasal spray as well as the antibiotic you are on. Return to the emergency department immediately with ANY new, persistent or worsening symptoms. Continue any medications as previously prescribed by your physician. You should follow up with your primary doctor as soon as possible regarding today's emergency department visit. . Please make sure your doctor reviews the results of your emergency evaluation. Thank you for coming to the Emergency Department today for your care. It was a pleasure to see you today. Please note that your evaluation is INCOMPLETE until you follow-up with your doctor. - Post Discharge Activity
== END 2019-03-24 02:55 | disposition home or self-care (01) ==
LOC: FER 02:36
DX: L50.8 Other urticaria (principal); T50.995A Adverse effect of other drugs, medicaments and biological substances, initial encounter; Y92.018 Other place in single-family (private) house as the place of occurrence of the external cause
CPT/HCPCS: 99281-25

== ENCOUNTER 2019-11-13 07:19 | Day surgery (SDC) | payer BC ==
[2019-11-07 13:32] VITALS: BMI 30.2
[2019-11-13] MEDS ORDERED: LIDOCAINE HCL/PF 2% SDV 5ML VIAL ONE (07:53)
[2019-11-13] MEDS ORDERED: PROPOFOL 20 ML ONE ×2 (07:53)
[2019-11-13 08:40] VITALS: TEMP 98.4
[2019-11-13 09:00] VITALS: BP 99/60; PULSE 63
== END 2019-11-13 09:20 | disposition home or self-care (01) ==
LOC: FASU 07:19
PROVIDERS: ATTEND Internal Medicine Gastroenterology
PROC: 0DJD8ZZ Inspection of Lower Intestinal Tract, Via Natural or Artificial Opening Endoscopic (ICD-10-PCS; principal; 2019-11-13 08:20)
DX: Z12.11 Encounter for screening for malignant neoplasm of colon (principal); Z80.0 Family history of malignant neoplasm of digestive organs; K64.4 Residual hemorrhoidal skin tags